=== PATIENT | male | born 1995 | race Asian ===

== ENCOUNTER 2021-04-08 10:02 | Emergency (ER) | payer OTHER ==
[~2021-04-08] VITALS: Ht 177.8 cm; Wt 86.4 kg
[~2021-04-08 10:02] MED LIST: ACET-66 PO
[2021-04-08 12:44] VITALS: BP 150/68
== END 2021-04-08 12:56 | disposition home or self-care (01) ==
LOC: EMS 10:09
DX: M25.512 Pain in left shoulder (principal); Z79.899 Other long term (current) drug therapy; V43.52XA Car driver injured in collision with other type car in traffic accident, initial encounter; Y93.89 Activity, other specified; Y92.89 Other specified places as the place of occurrence of the external cause; Y99.8 Other external cause status
CPT/HCPCS: 99283

== ENCOUNTER → 2021-04-09 | Outpatient (CLI) | payer OTHER | END | disposition home or self-care (01) | LOC: RADMN 15:41 | PROVIDERS: ATTEND Neuromusculoskeletal Medicine, Sports Medicine | DX: M51.37 Other intervertebral disc degeneration, lumbosacral region (principal); M47.814 Spondylosis without myelopathy or radiculopathy, thoracic region; M25.78 Osteophyte, vertebrae; G44.309 Post-traumatic headache, unspecified, not intractable; M41.9 Scoliosis, unspecified | CPT/HCPCS: 70450; 72040; 72070; 72100 ==

== ENCOUNTER → 2021-11-26 | Outpatient (CLI) | payer OTHER ==
[2021-11-26 10:54] LABS: BASOPHILS % (AUTO) 0.7 % (0.0-2.0); EOSINOPHILS % (AUTO) 5.6 % (1.0-6.0); HEMATOCRIT 44.3 % (41-53); HEMOGLOBIN 15.1 g/dL (13.5-17.5); LYMPHOCYTES # (AUTO) 2.2 K/uL (1.0-4.8); LYMPHOCYTES % (AUTO) 26.7 % (22.0-44.0); MEAN CORPUSCULAR HEMOGLOBIN 28.4 pg (26.0-34.0); MEAN CORPUSCULAR HGB CONC 34.1 G/dL (31.0-37.0); MEAN CORPUSCULAR VOLUME 83 fL (80-100); MONOCYTES # (AUTO) 0.3 K/uL (0.1-1.0); MONOCYTES % (AUTO) 4.1 % (2.0-9.0); NEUTROPHILS # (AUTO) 5.1 K/uL (1.8-7.7); NEUTROPHILS % (AUTO) 62.9 % (40.0-70.0); PLATELET COUNT (AUTO) 310 K/uL (150-450); RED BLOOD CELL COUNT(AUTO) 5.32 MIL/uL (4.50-5.90); RED CELL DISTRIBUTION WIDTH 13.2 % (11.5-14.5)
[2021-11-26 11:21] LABS: ANION GAP 11 mmol/L (8-16); CALCIUM, TOTAL 8.7 mg/dL (8.8-10.5); CARBON DIOXIDE 27 mmol/L (22-29); CHLORIDE 103 mmol/L (98-107); CREATININE 1.05 mg/dL (0.60-1.30); GLOMERULAR FILTR. RATE CALC > 60 mL/min (>60); GLUCOSE,RANDOM 86 mg/dL (70-110); SODIUM SERUM 141 mmol/L (136-145); UREA NITROGEN, BLOOD 14 mg/dL (7-18)
[2021-11-26 11:23] LABS: CHOL/HDL RATIO 4.3 (4.2-7.3); CHOLESTEROL 187 mg/dL (131-200); HDL CHOLESTEROL 44 mg/dL (40-60); LDL CHOL (CALC.) 109 mg/dL (0-130); TRIGLYCERIDES 168 mg/dL (15-150)
[2021-11-26 11:24] LABS: THYROID STIMULATING HORMONE 1.51 uIU/mL (0.36-3.74)
[2021-11-26 11:44] LABS: ALANINE AMINOTRANSFERASE 27 U/L (12-78); ALKALINE PHOSPHATASE 76 U/L (46-116); ASPARTATE AMINOTRANSFERASE 17 U/L (15-37); BILIRUBIN,TOTAL 0.3 mg/dL (0.1-1.0); TOTAL PROTEIN, SERUM 7.9 g/dL (6.4-8.2)
== END | disposition home or self-care (01) ==
LOC: LABPV 10:08
PROVIDERS: ATTEND Family Medicine
DX: M54.2 Cervicalgia (principal); R05.9 Cough, unspecified; M54.00 Panniculitis affecting regions of neck and back, site unspecified; M75.00 Adhesive capsulitis of unspecified shoulder; Z00.00 Encounter for general adult medical examination without abnormal findings
CPT/HCPCS: 80053; 80061; 84443; 85025

== ENCOUNTER → 2021-12-18 | Outpatient (CLI) | payer OTHER | END | disposition home or self-care (01) | LOC: RADMN 06:42 | PROVIDERS: ATTEND Family Medicine | DX: J98.11 Atelectasis (principal); R05.9 Cough, unspecified | CPT/HCPCS: 71046 ==

== ENCOUNTER 2022-04-06 06:48 | Emergency (ER) | payer OTHER ==
[~2022-04-06] VITALS: Ht 177.8 cm; Wt 109.0 kg
[2022-04-06] MEDS ORDERED: CEPHALEXIN MONOHYDRATE 500 MG CAPSULE PO ONE (08:00)
[2022-04-06] MEDS ORDERED: LIDOCAINE 1% 10 ML VIAL SQ ONE (08:00)
[2022-04-06] MEDS ORDERED: DOXYCYCLINE HYCLATE 100 MG TABLET PO ONE (08:00)
[2022-04-06] MEDS ORDERED: DOXY-354 PO (08:42)
[2022-04-06] MEDS ORDERED: CEPH-558 PO (08:42)
[2022-04-06 08:56] VITALS: BP 129/77
== END 2022-04-06 09:02 | disposition home or self-care (01) ==
LOC: EMS 06:48
DX: L02.11 Cutaneous abscess of neck (principal); Z79.899 Other long term (current) drug therapy
CPT/HCPCS: 99283; 10060; J3490

== ENCOUNTER 2022-04-08 10:55 | Emergency (ER) | payer OTHER ==
[~2022-04-08] VITALS: Ht 177.8 cm; Wt 109.1 kg
[~2022-04-08 10:55] MED LIST changes: -ACET-66 PO; +CEPH-558 PO; +DOXY-354 PO
[2022-04-08 11:03] VITALS: BP 140/90
[2022-04-08] MEDS ORDERED: BACITRACIN 28 GM OINTMENT TP ONE (12:15)
== END 2022-04-08 12:23 | disposition home or self-care (01) ==
LOC: EMS 10:55
DX: Z48.00 Encounter for change or removal of nonsurgical wound dressing (principal); L02.11 Cutaneous abscess of neck
CPT/HCPCS: 99282; Z7502; Z7610

== ENCOUNTER → 2022-05-11 | Outpatient (CLI) | payer OTHER | END | disposition home or self-care (01) | LOC: RADMN 13:30 | PROVIDERS: ATTEND Family Medicine | DX: R05.3 Chronic cough (principal) | CPT/HCPCS: 71046 ==